=== PATIENT | male | born 1990 | race American Indian/Alaskan Native ===

== ENCOUNTER 2024-08-22 22:41 | Observation (INO) | payer MEDICAID ==
[2024-08-22 23:11] LABS: BASOPHILS ABSOLUTE AUTO 0.06 K/uL (0.00-0.10); BASOPHILS PERCENT AUTO 0.3 % (0.1-1.3); EOSINOPHILS PERCENT AUTO 0.1 % (0.0-5.4); HEMATOCRIT 46.8 % (38.4-49.7); HEMOGLOBIN 15.8 g/dL (12.9-16.9); IMMATURE GRAN ABSOLUTE AUTO 0.11 K/uL (0.00-0.23); IMMATURE GRAN PERCENT AUTO 0.6 % (0.0-0.7); LYMPHOCYTES ABSOLUTE AUTO 0.94 K/uL (0.8-3.3); LYMPHOCYTES PERCENT AUTO 5.1 % (11.4-47.7); MEAN CORPUSCULAR HEMOGLOBIN 31.3 pg (31.6-35.5); MEAN CORPUSCULAR HGB CONC 33.8 g/dL (31.6-35.5); MEAN CORPUSCULAR VOLUME 92.9 fL (81.4-99.0); MONOCYTES ABSOLUTE AUTO 0.86 K/uL (0.20-0.90); MONOCYTES PERCENT AUTO 4.7 % (3.3-12.6); NEUTROPHILS ABSOLUTE AUTO 16.38 K/uL (1.0-7.6); NEUTROPHILS PERCENT AUTO 89.2 % (40.0-78.1); PLATELET COUNT,PLT 236 K/uL (130-375); RED BLOOD CELL COUNT 5.04 M/uL (4.14-5.76); WHITE BLOOD CELL COUNT,WBC 18.4 K/uL (3.2-11.0)
[2024-08-22 23:13] LABS: EOSINOPHILS ABSOLUTE AUTO 0.01 K/uL (0.00-0.40)
[2024-08-22] MEDS ORDERED: Naloxone 0.4 MG/ML SDV IVPUSH PRN (23:13)
[2024-08-22] MEDS: HYDROmorphone 0.5 MG/0.5 ML Syringe IVPUSH ONE (23:20)
[2024-08-22 23:26] LABS: A/G RATIO 1.1 (1.2-2.2); ALANINE AMINOTRANSFERASE,ALT 41 U/L (12-78); ALBUMIN 3.9 g/dL (3.4-5.0); ALKALINE PHOSPHATASE 106 U/L (46-116); ASPARTATE AMNIOTRANSFERASE,AST 31 U/L (15-37); BILIRUBIN TOTAL 0.9 mg/dL (0.2-1.0); BLOOD UREA NITROGEN,BUN 9 mg/dL (7-18); C-REACTIVE PROTEIN 0.65 mg/dL (<0.50); CALCIUM 8.7 mg/dL (8.5-10.1); CARBON DIOXIDE,CO2 26 mmol/L (21-32); CHLORIDE,CL 101 mmol/L (100-108); EST CRCL DRUG DOSING (CG) 99.75 mL/min; ESTIMATED GFR 101 mL/min (>60); GLUCOSE RANDOM 155 mg/dL (74-106); POTASSIUM,K 4.6 mmol/L (3.6-5.2); PROTEIN TOTAL,TP 7.6 g/dL (6.4-8.2); SODIUM,NA 138 mmol/L (140-148)
[2024-08-22 23:29] LABS: ANION GAP 15.6 mmol/L (5.0-14.0)
[2024-08-22] MEDS: Sodium Chloride 0.9% 100 ML IV SCH (23:48)
[2024-08-22] MEDS: Sodium Chloride 0.9% 10 ML Syringe FLUSH PRN (23:48)
[2024-08-22] MEDS: Iopamidol 612 MG/ML 100 ML Bottle IV SCH (23:48)
[2024-08-23] MEDS: Piperacillin/Tazobactam 4.5 GM in Sodium Chloride 0.9% 100 ML IV ONE (00:45)
[2024-08-23] MEDS: Sodium Chloride 0.9% 1,000 ML IV SCH ×2 (00:45→02:31)
[2024-08-23] MEDS ORDERED: Sodium Chloride 0.9% 10 ML Syringe FLUSH PRN (01:21)
[2024-08-23] MEDS ORDERED: Ondansetron 4 MG/2 ML SDV IV PRN (01:21)
[2024-08-23] MEDS: HYDROmorphone 0.5 MG/0.5 ML Syringe IVPUSH PRN (02:02)
[2024-08-23] MEDS: Piperacillin/Tazobactam 4.5 GM in Sodium Chloride 0.9% 100 ML IV SCH (04:10)
[2024-08-23] MEDS ORDERED: Rocuronium 50 MG/5 ML Vial ONE (09:29)
[2024-08-23] MEDS ORDERED: Glycopyrrolate 0.2 MG/ML 5 ML MDV ONE (09:29)
[2024-08-23] MEDS ORDERED: Succinylcholine 200 MG/10 ML MDV ONE (09:29)
[2024-08-23] MEDS ORDERED: Neostigmine Methylsulfate 10 MG/10 ML MDV ONE (09:29)
[2024-08-23] MEDS ORDERED: Ondansetron 4 MG/2 ML SDV ONE (09:29)
[2024-08-23] MEDS ORDERED: Dexamethasone 4 MG/ML SDV ONE (09:29)
[2024-08-23] MEDS ORDERED: fentaNYL 250 MCG/5 ML SDV ONE (09:29)
[2024-08-23] MEDS ORDERED: Propofol 200 MG/20 ML SDV ONE (09:29)
[2024-08-23] MEDS: Piperacillin/Tazobactam/Dext 4.5 GM in Premix Bag 1 BAG IV SCH (12:00)
[2024-08-23] MEDS: Bupivacaine 0.25%/EPINEPHrine 1:200,000 30 ML SDV ONE (12:19)
[2024-08-23] MEDS ORDERED: fentaNYL 100 MCG/2 ML SDV ONE ×2 (12:30→12:34)
[2024-08-23] MEDS: Acetaminophen 325 MG Tab PO PRN (16:19)
== END 2024-08-23 18:11 | disposition home or self-care (01) ==
LOC: JP.ED 22:41 → JP.MS 08-23 00:54
PROVIDERS: ADMIT Nurse Practitioner; ATTEND Surgery
DX: K35.891 Other acute appendicitis without perforation, with gangrene (principal)
CPT/HCPCS: 36415; 44970; 74177; 80053; 83605; 83690; 85025; 86140; 88304; 96365; 96366; 96375; 96376; 99285; A9270; G0378; J0330; J1100; J1596; J2405; J2543; J2704; J2710; J3010; J7030; Q9967; 00840-QZ; 99222; 99284; J3490